=== PATIENT | female | born 1930 | race Caucasian/White ===

== ENCOUNTER 2017-01-02 09:46 | Observation (INO) | payer OTHER ==
[~2017-01-02] VITALS: Ht 167.6 cm; Wt 85.2 kg
[~2017-01-02 09:46] MED LIST: ASPIR 8181 M1 PO; BACTRIM,SEPT1 TABLET PO; CIPRO500 MG PO; COUMADIN2 MG PO; COUMADIN2.5 MG PO; COUMADIN3 MG PO; COUMADIN5 MG PO; DIGOXIN125 MCG PO; FUROSEMIDE40 MG PO; HYDROCHLOROTHIA25 MG PO; KEFLEX250 MG PO; KEFLEX750 MG PO; LASIX20 MG PO; LOPRESSOR100 M1 PO; LOPRESSOR25 MG PO; LOPRESSOR50 MG PO; LOVENOX150 MG/1 M SC; MACROBID100 MG PO; METOPROLOL TART50 MG PO; NORVASC5 MG PO; POTASSIUM CHLO20 ME1 PO; TOPROL XL50 MG PO; WARFARIN SODIU2.5 MG PO; WARFARIN SODIUM3 MG PO
[2017-01-02 10:30] LABS: HEMATOCRIT 37.7 % (36.0-46.0); MCH 28.4 PG (29.0-34.0); MCHC 32.4 G/DL (30.0-36.0); MCV 87.9 FL (83-99); MEAN PLAT.VOLUME 9.6 uM^3 (9.5-12.4); PLATELET COUNT 177 K/uL (156-360); RBC DIS.WIDTH-CV 14.5 % (11.8-14.6); RBC DIS.WIDTH-SD 45.9 % (39-53); RED BLOOD COUNT 4.29 M/uL (3.80-5.20); WHITE BLOOD COUNT 5.8 K/uL (4.1-10.2)
[2017-01-02 10:40] LABS: INTER. NORMALIZED RATIO 2.2; PROTHROMBIN TIME 22.7 (9.2-11.2); PTT 35.5 (25-32)
[2017-01-02 10:42] LABS: CHLORIDE 108 mEq/L (99-109); SODIUM 143 mEq/L (136-147)
[2017-01-02 10:43] LABS: GLUCOSE 108 mg/dL (70-99)
[2017-01-02 10:45] LABS: ANION GAP 10 MEQ/L (2-14)
[2017-01-02 10:47] LABS: GFR ESTIMATE (CALCULATED) 56 mL/min/
[2017-01-02 10:48] LABS: UREA NITROGEN (BUN) 13 mg/dL (9-23)
[2017-01-02 10:51] LABS: TROP-I INTERPRETATION NEGATIVE; TROPONIN-I 0.03 ng/mL (0.0-0.30)
[2017-01-02] MEDS ORDERED: WARFARIN SODIUM2 MG PO ×2 (13:56→13:57)
[2017-01-02] MEDS ORDERED: K-DUR20 MEQ PO (13:58)
[2017-01-02] MEDS ORDERED: FUROSEMIDE40 MG PO (13:58)
[2017-01-02] MEDS ORDERED: NYSTATIN-TRIAMC15 GM TP (14:00)
[2017-01-02 15:48] VITALS: BP 143/76
[2017-01-02 19:25] VITALS: BP 146/95
[2017-01-02 19:40] LABS: TROP-I INTERPRETATION NEGATIVE; TROPONIN-I < 0.01 ng/mL (0.0-0.30)
[2017-01-03 00:30] VITALS: BP 142/71
[2017-01-03 04:57] LABS: INTER. NORMALIZED RATIO 2.3; PROTHROMBIN TIME 23.6 (9.2-11.2)
[2017-01-03 05:00] VITALS: BP 124/60
[2017-01-03 05:08] LABS: TROP-I INTERPRETATION NEGATIVE; TROPONIN-I 0.01 ng/mL (0.0-0.30)
[2017-01-03 07:52] VITALS: BP 127/90
[2017-01-03 12:24] VITALS: BP 142/71
[2017-01-03] MEDS ORDERED: ZOFRAN4 MG PO (14:40)
== END 2017-01-03 15:29 | disposition home or self-care (01) ==
LOC: EME 09:46 → EDOF 13:57 → 5WEST 14:10 → EDOF 14:10 → 5WEST 15:15
PROVIDERS: Internal Medicine
DX: R07.9 Chest pain, unspecified (principal); I48.91 Unspecified atrial fibrillation; I10 Essential (primary) hypertension; Z86.711 Personal history of pulmonary embolism; Z79.01 Long term (current) use of anticoagulants; Z82.5 Family history of asthma and other chronic lower respiratory diseases; Z91.041 Radiographic dye allergy status; Z88.0 Allergy status to penicillin; Z85.828 Personal history of other malignant neoplasm of skin
CPT/HCPCS: 71010; 71020; 80048; 83880; 84484; 85027; 85610; 85730; 93005; 99281; 99285; G0378

== ENCOUNTER 2017-08-29 00:40 | Observation (INO) | payer OTHER ==
[~2017-08-29] VITALS: Ht 167.6 cm; Wt 88.5 kg
[~2017-08-29 00:40] MED LIST changes: +K-DUR20 MEQ PO; +NYSTATIN-TRIAMC15 GM TP; +WARFARIN SODIUM2 MG PO; +ZOFRAN4 MG PO
[2017-08-29 01:23] LABS: HEMATOCRIT 38.1 % (36.0-46.0); MCH 28.7 PG (29.0-34.0); MCV 89.6 FL (83-99); MEAN PLAT.VOLUME 9.6 uM^3 (9.5-12.4); PLATELET COUNT 175 K/uL (156-360); RBC DIS.WIDTH-CV 14.3 % (11.8-14.6); RBC DIS.WIDTH-SD 46.5 % (39-53); RED BLOOD COUNT 4.25 M/uL (3.80-5.20); WHITE BLOOD COUNT 7.8 K/uL (4.1-10.2)
[2017-08-29 01:30] LABS: INTER. NORMALIZED RATIO 2.5; PROTHROMBIN TIME 28.8 SEC (10.2-12.9)
[2017-08-29 01:31] LABS: CHLORIDE 105 mEq/L (99-109); POTASSIUM 3.6 mEq/L (3.7-5.4); SODIUM 143 mEq/L (136-147)
[2017-08-29 01:33] LABS: GLUCOSE 108 mg/dL (70-99)
[2017-08-29 01:33] LABS: PTT 41.4 SEC (25-37)
[2017-08-29 01:34] LABS: ANION GAP 13 MEQ/L (2-14)
[2017-08-29 01:36] LABS: GFR ESTIMATE (CALCULATED) > 59 mL/min/
[2017-08-29 01:37] LABS: UREA NITROGEN (BUN) 12 mg/dL (9-23)
[2017-08-29 05:29] VITALS: BP 149/80
[2017-08-29 07:25] VITALS: BP 143/72
[2017-08-29] MEDS ORDERED: K-DUR20 MEQ PO (11:45)
[2017-08-29] MEDS ORDERED: LOPRESSOR50 MG PO (11:45)
[2017-08-29] MEDS ORDERED: FUROSEMIDE40 MG PO (11:45)
[2017-08-29] MEDS ORDERED: WARFARIN SODIUM3 MG PO (11:46)
[2017-08-29 11:58] VITALS: BP 137/82
== END 2017-08-29 14:22 | disposition home or self-care (01) ==
LOC: EME 00:40 → EDOF 03:25 → ENRESERV 03:27 → 5WEST 04:45
PROVIDERS: Emergency Medicine
DX: E87.6 Hypokalemia (principal); I48.2 Chronic atrial fibrillation; Z79.01 Long term (current) use of anticoagulants; M79.602 Pain in left arm; M79.605 Pain in left leg; S00.93XA Contusion of unspecified part of head, initial encounter; W06.XXXA Fall from bed, initial encounter; Z91.81 History of falling; Z86.711 Personal history of pulmonary embolism; I35.0 Nonrheumatic aortic (valve) stenosis; Z85.828 Personal history of other malignant neoplasm of skin; Z60.2 Problems related to living alone; K21.9 Gastro-esophageal reflux disease without esophagitis; J44.9 Chronic obstructive pulmonary disease, unspecified; I10 Essential (primary) hypertension; Z90.49 Acquired absence of other specified parts of digestive tract; Z91.041 Radiographic dye allergy status; Z88.0 Allergy status to penicillin
CPT/HCPCS: 70450; 71010; 72125; 72170; 80048; 81003; 83735; 85027; 85610; 85730; 93005; 99281; 99285; G0378; G8978 GP CH; G8979 GP CH; G8980 GP CH; G8987 GO CH; G8988 GO CH; G8989 GO CH

== ENCOUNTER 2017-12-18 02:24 | Observation (INO) | payer OTHER ==
[~2017-12-18] VITALS: Ht 167.6 cm; Wt 85.5 kg
[2017-12-18 03:14] LABS: BASOPHIL (%) 0.5 % (0-1); EOSINOPHIL (%) 1.5 % (0-5); EOSINOPHIL COUNT 0.1 K/uL (0-0.3); HEMATOCRIT 35.3 % (36.0-46.0); HEMOGLOBIN 11.3 G/DL (11.9-15.5); IMMATURE GRANULOCYTE (%) 0.5 % (0.0-0.7); LYMPHOCYTE (%) 21.4 % (15-42); LYMPHOCYTE COUNT 1.3 K/uL (1.0-2.8); MCV 90.7 FL (83-99); MONOCYTE (%) 10.4 % (3-12); MONOCYTE COUNT 0.6 K/uL (0-0.8); NEUTROPHIL (%) 65.7 % (45-76); NEUTROPHIL COUNT 3.9 K/uL (1.8-6.4); PLATELET COUNT 161 K/uL (156-360); RBC DIS.WIDTH-CV 14.6 % (11.8-14.6); RBC DIS.WIDTH-SD 48.9 % (39-53); RED BLOOD COUNT 3.89 M/uL (3.80-5.20); WHITE BLOOD COUNT 5.9 K/uL (4.1-10.2)
[2017-12-18 03:25] LABS: CHLORIDE 109 mEq/L (99-109); POTASSIUM 3.9 mEq/L (3.7-5.4); SODIUM 143 mEq/L (136-147)
[2017-12-18 03:27] LABS: GLUCOSE 107 mg/dL (70-99)
[2017-12-18 03:31] LABS: GFR ESTIMATE (CALCULATED) 56 mL/min/
[2017-12-18 03:32] LABS: UREA NITROGEN (BUN) 13 mg/dL (9-23)
[2017-12-18 03:35] LABS: INTER. NORMALIZED RATIO 1.7
[2017-12-18 03:36] LABS: TROP-I INTERPRETATION NEGATIVE; TROPONIN-I 0.02 ng/mL (0.0-0.30)
[2017-12-18 03:38] LABS: PTT 36.3 SEC (25-37)
[2017-12-18 07:38] VITALS: BP 155/84
[2017-12-18 09:33] LABS: HDL CHOLESTEROL 50 MG/DL (Desirable>=50); LDL CHOLESTEROL 105 mg/dL (Desirable<100); NON-HDL CHOLESTEROL 118 mg/dL (Desirable<160); TOTAL CHOLESTEROL 168 mg/dL (Desirable<200); TRIGLYCERIDES 66 MG/DL (Normal: <150)
[2017-12-18 09:38] LABS: TROP-I INTERPRETATION NEGATIVE; TROPONIN-I 0.01 ng/mL (0.0-0.30)
[2017-12-18] MEDS ORDERED: COUMADIN2 MG PO (12:24)
[2017-12-18] MEDS ORDERED: NITROSTAT0.4 MG SL (12:24)
[2017-12-18] MEDS ORDERED: TYLENOL EXTRA500 MG PO (12:25)
[2017-12-18] MEDS ORDERED: NEOSPORIN + P28.3 GM TP (12:25)
[2017-12-18 12:29] VITALS: BP 124/88
[2017-12-18 15:05] VITALS: BP 146/79
[2017-12-18 15:36] LABS: TROP-I INTERPRETATION NEGATIVE; TROPONIN-I 0.01 ng/mL (0.0-0.30)
[2017-12-18 19:43] VITALS: BP 134/75
[2017-12-18 22:05] LABS: APPEARANCE CLOUDY ((CLEAR)); BILIRUBIN NEGATIVE; BLOOD SMALL; COLOR AMBER ((YELLOW)); GLUCOSE (STRIP) NEGATIVE; KETONES NEGATIVE; LEUKOCYTES SMALL; NITRITE POSITIVE; PROTEIN (STRIP) NEGATIVE; SPECIFIC GRAVITY 1.023 (1.000-1.030)
[2017-12-18 22:33] LABS: BACTERIA 3+ /HPF; EPITHELIAL CELLS 1+ /HPF; HYALINE CASTS 0-5 /LPF; MUCUS TRACE /LPF; UCUL ADDED? YES; WHITE BLOOD CELLS 20-30 /HPF (0-5)
[2017-12-19 00:41] VITALS: BP 99/54
[2017-12-19 04:16] VITALS: BP 125/75
[2017-12-19 05:59] LABS: INTER. NORMALIZED RATIO 2.1
[2017-12-19 06:18] LABS: CHLORIDE 105 MEQ/L (99-109); CREATININE 0.9 MG/DL (0.6-1.3); GFR ESTIMATE (CALCULATED) > 59 mL/min/; GLUCOSE 107 mg/dL (70-99); POTASSIUM 3.9 MEQ/L (3.7-5.4); SODIUM 141 MEQ/L (136-147); UREA NITROGEN (BUN) 15 mg/dL (9-23)
[2017-12-19 07:58] VITALS: BP 118/59
[2017-12-19 11:56] VITALS: BP 126/81
[2017-12-19] MEDS ORDERED: LEVOFLOXACIN250 MG PO (15:13)
[2017-12-19 16:15] VITALS: BP 134/89
== END 2017-12-19 16:27 | disposition home or self-care (01) ==
LOC: EME 02:24 → 5WEST 04:47 → EDOF 04:47 → ENRESERV 04:49 → 5WEST 07:08
PROVIDERS: Emergency Medicine; Hospitalist; Physician Assistant Medical
DX: R55 Syncope and collapse (principal); I48.2 Chronic atrial fibrillation; R07.9 Chest pain, unspecified; N39.0 Urinary tract infection, site not specified; I11.0 Hypertensive heart disease with heart failure; I50.22 Chronic systolic (congestive) heart failure; I42.9 Cardiomyopathy, unspecified; I35.0 Nonrheumatic aortic (valve) stenosis; I44.7 Left bundle-branch block, unspecified; I48.1 Persistent atrial fibrillation; I27.20 Pulmonary hypertension, unspecified; R79.1 Abnormal coagulation profile; Z86.711 Personal history of pulmonary embolism; Z88.0 Allergy status to penicillin; Z85.828 Personal history of other malignant neoplasm of skin; Z90.49 Acquired absence of other specified parts of digestive tract; Z91.041 Radiographic dye allergy status; Z79.01 Long term (current) use of anticoagulants
CPT/HCPCS: 70450; 71045; 80048; 80061; 81003; 84484; 85025; 85610; 85730; 87077; 87086; 87186; 93005; 93306; 93880; 95819; 97530 GO; 99281; 99284; G0378; G8978 GP CM; G8979 CJ; G8987 GO CJ; G8988 CI; G8988 GO CJ; G8989 GO CI; J1956

== ENCOUNTER 2018-03-14 10:03 | Emergency (ER) | payer OTHER ==
[~2018-03-14] VITALS: Ht 167.6 cm; Wt 87.2 kg
[~2018-03-14 10:03] MED LIST changes: +LEVOFLOXACIN250 MG PO; +NEOSPORIN + P28.3 GM TP; +NITROSTAT0.4 MG SL; +TYLENOL EXTRA500 MG PO
[2018-03-14 10:52] LABS: HEMATOCRIT 31.7 % (36.0-46.0); HEMOGLOBIN 10.4 G/DL (11.9-15.5); MCH 28.9 PG (29.0-34.0); MCHC 32.8 G/DL (30.0-36.0); MCV 88.1 FL (83-99); PLATELET COUNT 212 K/uL (156-360); RBC DIS.WIDTH-CV 14.2 % (11.8-14.6); RBC DIS.WIDTH-SD 45.1 % (39-53); WHITE BLOOD COUNT 6.1 K/uL (4.1-10.2)
[2018-03-14 11:02] LABS: ALBUMIN 3.4 g/dL (3.2-4.8); CHLORIDE 106 mEq/L (99-109); POTASSIUM 3.9 mEq/L (3.7-5.4); PTT 42.5 SEC (25-37); SODIUM 141 mEq/L (136-147)
[2018-03-14 11:04] LABS: GLUCOSE 130 mg/dL (70-99); INTER. NORMALIZED RATIO 2.9
[2018-03-14 11:05] LABS: TOTAL PROTEIN 6.8 g/dL (6.4-8.3)
[2018-03-14 11:08] LABS: ALKALINE PHOSPHATASE 80 IU/L (3-129); CREATININE 0.8 mg/dL (0.6-1.3); GFR ESTIMATE (CALCULATED) > 59 mL/min/
[2018-03-14 11:09] LABS: UREA NITROGEN (BUN) 8 mg/dL (9-23)
[2018-03-14 11:10] LABS: AST (GOT) 13 IU/L (2-34)
[2018-03-14 11:11] LABS: ALT (GPT) 6 IU/L (3-49)
[2018-03-14 11:12] LABS: TROP-I INTERPRETATION NEGATIVE; TROPONIN-I < 0.01 ng/mL (0.0-0.30)
[2018-03-14 14:29] LABS: TROP-I INTERPRETATION NEGATIVE; TROPONIN-I < 0.01 ng/mL (0.0-0.30)
[2018-03-14 15:47] VITALS: BP 144/77
== END 2018-03-14 15:48 | disposition home or self-care (01) ==
LOC: EME → EDBD 10:03 → EME 10:03
PROVIDERS: Emergency Medicine Emergency Medical Services
DX: I48.91 Unspecified atrial fibrillation (principal); R07.9 Chest pain, unspecified; R53.1 Weakness; I11.0 Hypertensive heart disease with heart failure; I50.9 Heart failure, unspecified; J44.9 Chronic obstructive pulmonary disease, unspecified; Z88.0 Allergy status to penicillin
CPT/HCPCS: 71045; 80053; 83880; 84484; 85027; 85610; 85730; 93005; 99281; 99285; J7030